=== PATIENT | female | born 1955 | race Caucasian/White ===

== ENCOUNTER 2023-09-02 11:29 | Emergency (ER) | payer MEDICARE, OTHER ==
[~2023-09-02] VITALS: Ht 160 cm; Wt 65.8 kg
[2023-09-02 11:40] VITALS: BP 153/85; TEMP 98.5
[2023-09-02] MEDS ORDERED: IBUPROFEN 600 MG TABLET ONE (11:59)
[2023-09-02] MEDS ORDERED: IBUPROFEN 600 MG TABLET PO ONE (12:00)
[2023-09-02 13:37] VITALS: O2SAT 97
== END 2023-09-02 13:38 | disposition home or self-care (01) ==
LOC: ER 11:29
DX: M25.561 Pain in right knee (principal); I10 Essential (primary) hypertension; E11.9 Type 2 diabetes mellitus without complications
CPT/HCPCS: 99284; 71045; 73564; 73501; A6403

== ENCOUNTER 2023-11-14 00:42 | Emergency (ER) | payer MEDICARE, BC ==
[~2023-11-14] VITALS: Ht 160 cm; Wt 65.8 kg
[2023-11-14] MEDS ORDERED: LIDOCAINE 5% (PATCH) 1 EA PATCH TP ONE (01:07)
[2023-11-14] MEDS ORDERED: HYDROCODONE/APAP 5/325MG TABLET ONE (01:08)
[2023-11-14] MEDS: HYDROCODONE/APAP 5/325MG TABLET PO ONE (01:22)
[2023-11-14] MEDS: LIDOCAINE 5% (PATCH) 1 EA PATCH TP SCH (01:22)
[2023-11-14] MEDS ORDERED: IBUP-1953 PO ×2 (03:18→03:39)
[2023-11-14] MEDS ORDERED: HYDR-4303 PO ×2 (03:18→03:39)
[2023-11-14] MEDS ORDERED: LIDO30AD10 TP ×2 (03:18→03:39)
[2023-11-14 03:40] VITALS: BP 141/87; TEMP 98.1; O2SAT 99
== END 2023-11-14 03:41 | disposition home or self-care (01) ==
LOC: ER 00:45
DX: S20.211A Contusion of right front wall of thorax, initial encounter (principal); E11.9 Type 2 diabetes mellitus without complications; W01.0XXA Fall on same level from slipping, tripping and stumbling without subsequent striking against object, initial encounter; Y93.89 Activity, other specified; Y92.89 Other specified places as the place of occurrence of the external cause; Y99.8 Other external cause status
CPT/HCPCS: 71100-TC

== ENCOUNTER 2024-10-27 04:36 | Emergency (ER) | payer MEDICARE, BC ==
[~2024-10-27] VITALS: Ht 165.1 cm; Wt 68.0 kg
[~2024-10-27 04:36] MED LIST: HYDR-4303 PO; IBUP-1953 PO; LIDO30AD10 TP
[2024-10-27] MEDS ORDERED: MORPHINE SULFATE INJ 4 MG/ML DISP.SYRIN ONE (05:17)
[2024-10-27] MEDS: KETAMINE HCL(200MG/20ML) 10 MG/ML VIAL IV ONE (05:30)
[2024-10-27] MEDS: MORPHINE SULFATE INJ 2 MG/ML DISP.SYRIN IV ONE (05:31)
[2024-10-27 07:06] LABS: BASOPHILS # (AUTO) 0.1 K/uL (0.0-0.2); BASOPHILS % (AUTO) 0.9 % (0.0-2.0); EOSINOPHILS # (AUTO) 0.3 K/uL (0.0-0.7); EOSINOPHILS % (AUTO) 2.8 % (0.0-6.0); HEMATOCRIT 34 % (33-45); HEMOGLOBIN 11.1 g/dL (11.5-14.8); LYMPHOCYTES # (AUTO) 2.4 K/uL (0.8-4.8); LYMPHOCYTES % (AUTO) 25.4 % (20.0-44.0); MEAN CORPUSCULAR HEMOGLOBIN 25 PG (26.0-33.0); MEAN CORPUSCULAR HGB CONC 32 g/dl (31.0-36.0); MEAN CORPUSCULAR VOLUME 78 fL (82-100); MONOCYTES # (AUTO) 0.6 K/uL (0.1-1.30); MONOCYTES % (AUTO) 6.6 % (2.0-12.0); NEUTROPHILS # (AUTO) 6.2 K/uL (1.8-8.9); NEUTROPHILS % (AUTO) 64.3 % (43.0-81.0); PLATELET COUNT (AUTO) 215 K/uL (150-450); RED BLOOD CELL COUNT(AUTO) 4.39 MIL/uL (4.0-5.2); RED CELL DISTRIBUTION WIDTH 15.1 % (11.5-15.0); WHITE BLOOD COUNT (AUTO) 9.6 K/uL (4.3-11.0)
[2024-10-27 07:15] LABS: CREATININE 1.2 mg/dL (0.6-1.3); POTASSIUM 3.7 mmol/L (3.5-5.1)
[2024-10-27 07:24] LABS: CALCIUM, SERUM 8.8 mg/dL (8.5-10.1)
[2024-10-27 07:30] LABS: INR 0.96 (0.91-1.10); PARTIAL THROMBOPLASTIN TIME 25.4 SEC (24.3-34.3); PROTHROMBIN TIME 10.2 SECS (9.2-11.1)
[2024-10-27] MEDS ORDERED: IBUP-1955 PO (07:45)
[2024-10-27] MEDS ORDERED: HYDR-4303 PO (07:45)
[2024-10-27 08:31] VITALS: BP 142/88; TEMP 98.6; O2SAT 100
== END 2024-10-27 08:31 | disposition home or self-care (01) ==
LOC: ER 04:44
DX: S82.142A Displaced bicondylar fracture of left tibia, initial encounter for closed fracture (principal); M16.0 Bilateral primary osteoarthritis of hip; E11.9 Type 2 diabetes mellitus without complications; R00.1 Bradycardia, unspecified; M25.562 Pain in left knee; Z60.2 Problems related to living alone; W03.XXXA Other fall on same level due to collision with another person, initial encounter; Y93.89 Activity, other specified; Y92.098 Other place in other non-institutional residence as the place of occurrence of the external cause; Y99.8 Other external cause status
CPT/HCPCS: 29505; 36415; 71045; 73503; 73564; 80048; 85025; 85730; 93005; 96374; 99285; J2270; 73502